=== PATIENT | female | born 1990 | race Caucasian/White ===

== ENCOUNTER → 2016-09-24 | Outpatient (CLI) | payer OTHER ==
[~2016-09-24] MED LIST: BCPILLS PO; SULF800T23 PO
[2016-09-24 17:25] LABS: MANUAL MICROSCOPIC REQUIRED? NO; REVIEW REQ? NO; URINE APPEARANCE TURBID (CLEAR); URINE BILIRUBIN NEG (NEG); URINE COLOR YELLOW; URINE EPITHELIAL CELL AUTO 20-30 /lpf (0-5); URINE NITRITE NEG (NEG); URINE SPECIFIC GRAVITY 1.023 (1.000-1.030); UROBILINOGEN NEG (NEG)
== END | disposition home or self-care (01) ==
LOC: C.LABSPEC 16:33
PROVIDERS: ATTEND Family Medicine
DX: R39.9 Unspecified symptoms and signs involving the genitourinary system (principal)

== ENCOUNTER → 2016-10-09 | Outpatient (CLI) | payer OTHER | END | disposition home or self-care (01) | LOC: C.PATHSPEC 15:47 | PROVIDERS: ATTEND Obstetrics & Gynecology | DX: N87.1 Moderate cervical dysplasia (principal) ==

== ENCOUNTER → 2016-11-09 | Outpatient (CLI) | payer OTHER ==
[~2016-11-09] MED LIST changes: -SULF800T23 PO
[2016-11-09 17:28] LABS: BASO % 0.3 %; BASO ABS # 0.02 K/uL (0-0.2); COMPLETE YES; EOS % 0.9 %; HEMATOCRIT 42.2 % (37-47); IG% 0.1 %; LYMPH % 24.5 %; LYMPH ABS # 1.84 K/uL (1.2-3.4); MEAN CELL VOLUME 89.8 fL (80-100); MEAN CORPUSCULAR HEMOGLOBIN 29.6 pg (25-34); MEAN CORPUSCULAR HGB CONC 32.9 g/dl (32-36); MEAN PLATELET VOLUME 11.6 fL (7.4-10.4); MONO % 6.4 %; NEUT % 67.8 %; PLATELET COUNT 299 K/uL (130-400); WHITE BLOOD COUNT 7.52 K/uL (4.8-10.8)
== END | disposition home or self-care (01) ==
LOC: C.LABPBG 13:34
PROVIDERS: ATTEND Obstetrics & Gynecology
DX: Z01.818 Encounter for other preprocedural examination (principal)

== ENCOUNTER → 2016-11-19 | Day surgery (SDC) | payer OTHER ==
[2016-11-01 10:18] VITALS: Ht 167.6 cm; Wt 55.5 kg
[~2016-11-19] VITALS: Ht 167.6 cm; Wt 55.5 kg
[~2016-11-19] MED LIST changes: +ACETIC ACID 4% (WHITE VINEGAR) 30ML ONE; +ATROPINE SULFATE 0.1 MG/ML 5ML SYR IV PRN; +DEXAMETHASONE SOD INJ 4 MG/ML VIAL ONE; +EpHEDrine SULFATE INJ 50 MG/ML AMP IV PRN; +FENTANYL CITRATE INJ 50 MCG/1 ML 2 ML VIAL IV PRN; +FENTANYL CITRATE INJ 50 MCG/1 ML 2 ML VIAL ONE; +FERRIC SUBSULFATE 8 GM VIAL ONE; +IBUPROFEN 600 MG TAB PO PRN; +IODINE SOLN STRONG 14 ML ONE; +KETOROLAC TROMETHAMINE 30 MG/ML VIAL ONE; +LACTATED RINGER'S 1000ML 1,000 ML IV SCH; +LIDOCAINE HCL 2% 2 ML VIAL (20MG/ML) ONE; +LIDOCAINE/EPINEPHRINE 1% INJ 50 ML VIAL ONE; +MIDAZOLAM HCL 1 MG/ML 2ML VIAL ONE; +ONDANSETRON INJ 2 MG/ML 2 ML VIAL IV PRN; +ONDANSETRON INJ 2 MG/ML 2 ML VIAL ONE; +OXYCODONE/ACETAMINOPHEN 5-325 TAB PO PRN; +PROMETHAZINE HCL INJ 25 MG in SODIUM CHLORIDE 0.9% 50ML 50 ML IV PRN; +PROPOFOL IV EMULSION 10 MG/ML 20 ML VIAL IV ONE; +SODIUM CHLORIDE 0.9% 1000ML 1,000 ML IV SCH
--- NOTE | 2016-11-19 06:56 | History & Physical Bridge - [place] ---
H&P Re-Evaluation Bridge Note: I have examined the patient, reviewed the History & Physical and in the interval since the performance of the History & Physical I have noted the following changes of clinical significance: No changes noted
--- NOTE | 2016-11-19 07:31 | [facility] Post Operative Brief Note ---
Immediate Operative Summary Operative Date Nov 19, 2016. 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 Aria Panchal Wall Washer Surgeon(s) [facility] Estimated Blood Loss 1 cc Findings Normal appearing cervix, with acetowhite changes around transformation zone, no areas of decreased lugol's uptake. Specimens A. Ecto and Endocervix (suture at 1200) Drains none, patient emptied bladder prior to procedure Anesthesia general Complication(s) None Disposition Recovery Room / PACU
--- NOTE | 2016-11-19 07:36 | Medical Student: [facility] ---
Immediate Operative Summary Operative Date Nov 19, 2016. Pre-Operative Diagnosis cervical dysplasia, SPENCER 2/HSIL on colposcopy and ASCUS on pap smear Post-Operative Diagnosis same, pathology pending Procedure(s) Performed loop electrosurgical excision procedure Surgeon Dr. Panchal Supervisor Electron Tube Processing Surgeon(s) Leisa Rojas MS3 Estimated Blood Loss 1 cc Findings normal appearing cervix. Acetowhite changes around the transformation zone, but no areas of decreased lugol's uptake Specimens A) Ectocervix and Endocervix (suture at 12 o'clock) Drains none (patient emptied bladder prior to procedure) Anesthesia LMA Complication(s) None Disposition Recovery Room / PACU
--- NOTE | 2016-11-19 07:43 | Discharge Instructions-SurgCtr ---
Discharge Instructions Visit Reason for Visit: cervical dysplasia Discharge Discharge Diagnosis / Problem: s/p LEEP Discharge Goals Goal(s): Diagnostic testing, Therapeutic intervention Activity Recommendations Activity Limitations: per Instructions/Follow-up section Anesthesia . Post Anesthesia Instructions: If you have had General Anesthesia or IV Sedation: * Do not drive today. * Resume driving when surgeon permits. * Do not make important decisions or sign legal documents today. * Call surgeon for: 1. Temperature elevations greater than 101 degrees F. 2. Uncontrollable pain. 3. Excessive bleeding. 4. Persistent nausea and vomiting. 5. Medication intolerance (nausea, vomiting or rash). * For nausea and vomiting use only clear liquids such as: tea, soda, bouillon until nausea subsides, then gradually increase diet as tolerated. * If you have any concerns or questions, call your surgeon's office. If physician is unavailable and it is an emergency, call 911 or go to the nearest emergency room. . Instructions / Follow-Up Instructions / Follow-Up ACTIVITY RECOMMENDATIONS: * Avoid tampons, douching, hot tubs, pools, and intercourse until bleeding has stopped. * May shower as usual. * No strenuous activity for 24-48 hours. After 24-48 hours, you may do anything you feel like doing (driving and sports are okay). SPECIAL CARE INSTRUCTIONS: Special Diet: * Mild nausea may occur in the immediate post-operative period. * Take clear liquids such as tea, cola or bouillon until all nausea has subsided; you may then resume your normal diet. Special Care: * Light bleeding and vaginal spotting can last from a few days to 3-4 weeks. Call your doctor if bleeding becomes heavier than the heaviest part of your period. * Check your temperature twice a day for one week. If it goes above 100.4 degrees Fahrenheit (38.0 Celsius), notify your doctor. * Call your doctor's office for an appointment for 2 weeks after your surgery. FOLLOW-UP VISIT: Call your doctor's office for an appointment for 2 weeks after your surgery. Diet Recommendations Home Diet: resume previous diet Procedures Procedures Performed: Loop Electrosurgical Excision Procedure Pending Studies Studies pending at discharge: yes List of pending studies: Pathology: endo/ectocervix, ECC Medical Emergencies . Who to Call and When: Medical Emergencies: If at any time you feel your situation is an emergency, please call 911 immediately. . Non-Emergent Contact Non-Emergency issues call your: Primary Care Provider, Mixer Tender . . "Provider Documentation" section prepared by Chiara Panchal.
--- NOTE | 2016-11-19 07:56 | Anesthesia Progress Nt - [facility] ---
Anesthesia Post Op Note Date & Time Nov 19, 2016 at 07:56 Vital Signs Pain Intensity: 0 Vital Signs Past 12 Hours Date Time Temp Pulse Resp B/P Pulse Ox O2 Delivery O2 Flow Rate FiO2 11/19/16 07:31 36.2 82 16 88/51 100 Mask 6 11/19/16 06:31 36.9 75 16 104/71 98 Room Air Notes Mental Status: alert / awake / arousable, participated in evaluation Pt Amnestic to Procedure: Yes Nausea / Vomiting: adequately controlled Pain: adequately controlled Airway Patency, RR, SpO2: stable & adequate BP & HR: stable & adequate Hydration State: stable & adequate Anesthetic Complications: no major complications apparent
[2016-11-19 08:44] VITALS: BP 104/68; PULSE 61; TEMP 37.4; O2SAT 99
--- NOTE | 2016-11-19 08:50 | OPERATIVE REPORT ---
DATE OF OPERATION: 11/19/2016 PREOPERATIVE DIAGNOSES: Cervical dysplasia atypical squamous cells of undetermined significance with positive high risk human papillomavirus on Pap smear followed by HSIL/CIN2 on colposcopy. POSTOPERATIVE DIAGNOSES: Same. Pathology pending. PROCEDURES PERFORMED: 1. Loop electrosurgical excision procedure. 2. Endocervical curettage. SURGEON: Chiara Panchal DO [employer]: DENAE Mckay. ESTIMATED BLOOD LOSS: 1 mL. FINDINGS: Normal-appearing cervix with acetowhite changes around the transformation zone. No areas of decreased Lugol's uptake. SPECIMENS: Ecto and endocervix and endocervical curettage. DRAINS: None. The patient emptied her bladder prior to procedure. ANESTHESIA: General. COMPLICATIONS: None. DISPOSITION: Stable and good to recovery room. INDICATIONS FOR PROCEDURE: The patient is a 26-year-old G0, who showed ASCUS with positive HPV on Pap smear. Colposcopy was performed and a biopsy sample was taken at 1 o'clock and pathology showed CIN2/HSIL. ECC was performed at time of colposcopy; however, pathology report states that it did not survive processing. The patient was counseled on surgical options and informed consent was obtained and she elected to proceed with surgery. DESCRIPTION OF PROCEDURE: The patient was seen in the preoperative holding area where risks, benefits, and alternatives were reviewed. She elected to proceed with surgery. Informed consent had previously been obtained in the office. She was taken to the operating room, where general anesthesia was introduced. She was prepared and draped in the usual sterile fashion with feet in candy cane stirrups in the dorsal lithotomy position. A rubberized speculum was placed in the vagina. The cervix was visualized. The cervix was washed with vinegar solution and the above noted acetowhite changes were visualized. The cervix was then washed with Lugol solution with the above noted findings. 1% Xylocaine with epinephrine was injected using a spinal needle into bilateral cervical neurovascular bundles at 3 o'clock and 9 o'clock, 1 mL each. The LEEP procedure was then performed with one specimen obtained with a suture at 12 o'clock. ECC was performed and this specimen was sent to pathology. Using a ball tip cautery, the bed was cauterized until hemostatic. Excellent hemostasis was achieved. A uterine sound was placed through the cervical os to ensure patency. The patient was awoken from anesthesia and taken to the recovery area in stable and good condition. I attest to the content of the Intraoperative Record and any orders documented therein. Any exceptions are noted below. HAIRD
== END | disposition home or self-care (01) ==
LOC: X.SURG 06:08
PROVIDERS: ATTEND Obstetrics & Gynecology
DX: N87.1 Moderate cervical dysplasia (principal); N87.0 Mild cervical dysplasia; R87.618 Other abnormal cytological findings on specimens from cervix uteri; Z80.3 Family history of malignant neoplasm of breast

== ENCOUNTER → 2017-12-10 | Outpatient (CLI) | payer OTHER ==
[~2017-12-10] MED LIST changes: -ACETIC ACID 4% (WHITE VINEGAR) 30ML ONE; -ATROPINE SULFATE 0.1 MG/ML 5ML SYR IV PRN; -DEXAMETHASONE SOD INJ 4 MG/ML VIAL ONE; -EpHEDrine SULFATE INJ 50 MG/ML AMP IV PRN; -FENTANYL CITRATE INJ 50 MCG/1 ML 2 ML VIAL IV PRN; -FENTANYL CITRATE INJ 50 MCG/1 ML 2 ML VIAL ONE; -FERRIC SUBSULFATE 8 GM VIAL ONE; -IBUPROFEN 600 MG TAB PO PRN; -IODINE SOLN STRONG 14 ML ONE; -KETOROLAC TROMETHAMINE 30 MG/ML VIAL ONE; -LACTATED RINGER'S 1000ML 1,000 ML IV SCH; -LIDOCAINE HCL 2% 2 ML VIAL (20MG/ML) ONE; -LIDOCAINE/EPINEPHRINE 1% INJ 50 ML VIAL ONE; -MIDAZOLAM HCL 1 MG/ML 2ML VIAL ONE; -ONDANSETRON INJ 2 MG/ML 2 ML VIAL IV PRN; -ONDANSETRON INJ 2 MG/ML 2 ML VIAL ONE; -OXYCODONE/ACETAMINOPHEN 5-325 TAB PO PRN; -PROMETHAZINE HCL INJ 25 MG in SODIUM CHLORIDE 0.9% 50ML 50 ML IV PRN; -PROPOFOL IV EMULSION 10 MG/ML 20 ML VIAL IV ONE; -SODIUM CHLORIDE 0.9% 1000ML 1,000 ML IV SCH
== END | disposition home or self-care (01) ==
LOC: C.PAPS 07:46
PROVIDERS: ATTEND Obstetrics & Gynecology
DX: Z01.419 Encounter for gynecological examination (general) (routine) without abnormal findings (principal)